=== PATIENT | female | born 1940 | race Caucasian/White ===

== ENCOUNTER 2017-01-30 08:16 | Day surgery (SDC) | payer MEDICARE, OTHER ==
--- NOTE | ~2017-01-30 | EGD ---
EGD REPORT [facility] [address] [address] NAME: ROXY ERNANDEZ : [birth year] STATUS : REG [facility] [place] PAT#: [id number] AGE: 76 ADM/REG DATE : 01/30/17 MR#: [id number] REPORT SERV DATE: 01/30/17 DICTATED BY: PRIYANK SUERO DATE: 01/30/17 REPORT STATUS : Draft TRANSCRIBED BY: [employer] DATE: 01/30/17 [facility] Patient Name: Roxy Ernandez Date of : 1940 Attending MD: PRIYANK SUERO MD Procedure Date No Time: 01/30/2017 Procedure: Colonoscopy Indications: High risk colon cancer surveillance: Personal history of colonic polyps Referring MD: TRIPP RAHMAN MD Medicines: as per anesthesia Complications: No immediate complications. Procedure: Pre-Anesthesia Assessment: - ASA Grade Assessment: III - A patient with severe systemic disease. After I obtained informed consent, the scope was passed under direct vision. Throughout the procedure, the patient's blood pressure, pulse, and oxygen saturations were monitored continuously. The PCF [id number] was introduced through the anus and advanced to the cecum, identified by appendiceal orifice and ileocecal valve. The colonoscopy was somewhat difficult due to significant looping and a tortuous colon. The patient tolerated the procedure. The quality of the bowel preparation was adequate to identify polyps. Findings: The perianal and digital rectal examinations were normal. The colon (entire examined portion) appeared normal. Impression: - The entire examined colon is normal. Recommendation: - Continue present medications. Procedure Code(s): --- Professional --- 91432, Colonoscopy, flexible, proximal to splenic flexure; diagnostic, with or without collection of specimen(s) by brushing or washing, with or without colon decompression (separate procedure) Diagnosis Code(s): --- Professional --- Z86.010, Personal history of colonic polyps CPT copyright 2013 [employer]. All rights reserved. EGD REPORT [facility] [address] [facility] [place] [address] NAME: ROXY ERNANDEZ : [birth year] STATUS : REG [facility]#: [id number] AGE: 76 ADM/REG DATE : 01/30/17 MR#: [id number] REPORT SERV DATE: 01/30/17 DICTATED BY: PRIYANK SUERO. DATE: 01/30/17 REPORT STATUS : Draft TRANSCRIBED BY: [employer] DATE: 01/30/17 The codes documented in this report are preliminary and upon professional fee coder review may be revised to meet current compliance requirements. PRIYANK SUERO MD 01/30/2017 10:13 AM This report has been signed electronically. Number of Addenda: 0 Note Initiated On: 01/30/2017 9:41 AM Scope Withdrawal Time 0 hours 5 minutes 52 seconds [address] [place] [address]
[~2017-01-30 08:16] MED LIST: ACIDOPHILU1 PO; ALIGN4 MG PO; ALLERGY REL1 OPH; CELEBREX2 PO; CLOBETASOL0.053 EX; CULTURELLE; ESTRACE VAGIN42.5 GM V; EYE ANTIBIOTIC OP; KLONO5 PO; MIRALAXPKT PO; MULTIVIT/MIN PO; PERCOCET1 TA2 PO; PREDNISONE PO; PRIN20 PO; REG PO; SEV VITAMINS PO; SYN1 PO; TOBDEXOO OPH; VITAMIN B-121000 MC1 SL; VITAMIN D1000 UNI1 PO; ZYRTEC ALLGY10 MG PO
[2017-02-26] MEDS ORDERED: ESTRACE VAGIN42.5 GM V (12:03)
[2017-02-26] MEDS ORDERED: TEMOVATE CREAM30 GM TOP (12:05)
[2017-04-01] MEDS ORDERED: PRAMOXINE T (09:45)
[2017-04-01] MEDS ORDERED: HYDROCORTISONE T (09:45)
[2017-04-01] MEDS ORDERED: ZANTAC150 MG PO (09:47)
[2017-04-01] MEDS ORDERED: PRESERVISION A1 EAC1 PO (09:47)
[2017-04-01] MEDS ORDERED: GAS X PO (09:48)
[2017-04-01] MEDS ORDERED: MIRALAX POWDER1 PKT PO (09:49)
[2017-04-01] MEDS ORDERED: LIBRAX PO (09:50)
[2017-04-04] MEDS ORDERED: NORCO1 TA1 PO (09:11)
== END 2017-01-30 23:59 | disposition home health service (06) ==
LOC: DMU 08:16
PROVIDERS: Internal Medicine Gastroenterology
PROC: 0DJD8ZZ Inspection of Lower Intestinal Tract, Via Natural or Artificial Opening Endoscopic (ICD-10-PCS; principal; 2017-01-30 09:30)
DX: Z12.11 Encounter for screening for malignant neoplasm of colon (principal); I10 Essential (primary) hypertension; M19.90 Unspecified osteoarthritis, unspecified site; E03.9 Hypothyroidism, unspecified; F41.9 Anxiety disorder, unspecified; K21.9 Gastro-esophageal reflux disease without esophagitis; Z86.010 Personal history of colon polyps; Z88.8 Allergy status to other drugs, medicaments and biological substances; Z79.899 Other long term (current) drug therapy; Z90.49 Acquired absence of other specified parts of digestive tract; Z98.890 Other specified postprocedural states